=== PATIENT | female | born 1985 | race African-American/Black ===

== ENCOUNTER 2019-06-21 08:56 | Outpatient (CLI) | payer BC ==
--- NOTE | 2019-06-21 10:05 | MRI ---
MRI Lower Ext Jt Rt WO Con HISTORY: Medial knee pain after hyperextending knee during softball 2 months ago. COMPARISON: None. FINDINGS: Repeat images were performed exam quality is less than optimal, some repeat images were per formed as initial sequences were very suboptimal, the exam is felt to be technically satisfactory. The anterior as well as posterior cruciate ligaments are intact. Medial meniscus has a normal shape and appearance. Slight undulation at the junction of the anterior horn and body of the lateral meniscus is present this is probably just related to a meniscal flounce. The medial and lateral collateral ligaments and iliotibial band regions are normal. Patellar articular cartilage is not well assessed due to motion but I see no abnormalities. The media l lateral patellar retinaculum and quadriceps and patellar tendons appear unremarkable. IMPRESSION: No evidence of meniscal or cruciate ligament injury.
== END 2019-06-21 08:57 | disposition home or self-care (01) ==
LOC: BICMRI 08:56
PROVIDERS: ATTEND Orthopaedic Surgery
DX: M25.561 Pain in right knee (principal)